=== PATIENT | male | born 1965 | race Caucasian/White ===

== ENCOUNTER 2023-10-17 11:46 | Observation (INO) | payer BC ==
[~2023-10-17] VITALS: Ht 180.3 cm; Wt 117.9 kg
[2023-10-17 11:50] VITALS: BP_SYST 178; PULSE 110; RESP 20; TEMP 98.7; O2SAT 99
[2023-10-17 13:36] LABS: BASOPHILS % (AUTO) 0.3 % (0.0-2.0); EOSINOPHILS % (AUTO) 0.1 % (0.0-4.0); HEMATOCRIT 39.7 % (36-54); HEMOGLOBIN 13.7 g/dL (14.0-18.0); LYMPHOCYTES # (AUTO) 1.4 K/uL (1.0-5.5); LYMPHOCYTES % (AUTO) 16.6 % (20.5-51.5); MEAN CORPUSCULAR HEMOGLOBIN 29 pg (27-31); MEAN CORPUSCULAR HGB CONC 34 % (32-36); MEAN CORPUSCULAR VOLUME 84 fL (79.0-98.0); MONOCYTES # (AUTO) 0.4 K/uL (0.0-1.0); MONOCYTES % (AUTO) 4.5 % (1.7-9.3); NEUTROPHILS # (AUTO) 6.7 K/uL (1.8-7.7); NEUTROPHILS % (AUTO) 78.5 % (40.0-70.0); PLATELET COUNT (AUTO) 227 K/uL (130-430); RED BLOOD CELL COUNT(AUTO) 4.75 MIL/uL (4.2-6.2); RED CELL DISTRIBUTION WIDTH 14.1 % (9.0-15.0); WHITE BLOOD COUNT (AUTO) 8.5 K/uL (4.8-10.8)
[2023-10-17 13:53] LABS: ANION GAP 8 (5-15); CALCIUM 9.1 mg/dL (8.4-11.0); CARBON DIOXIDE 28 mmol/L (23-29); CHLORIDE 105 mmol/L (98-107); CREATININE 0.74 mg/dL (0.55-1.30); GFR AFRICAN AMERICAN 140 mL/min (>90); GLUCOSE 119 mg/dL (74-106); SODIUM SERUM 141 mmol/L (136-145); UREA NITROGEN, BLOOD 13 mg/dL (8-21)
[2023-10-17 13:57] LABS: INR 0.9 (0.80-1.20); PROTHROMBIN TIME 9.8 SECS (9.5-12.5)
[2023-10-17 13:58] LABS: GFR NON AFRICAN-AMERICAN 116 mL/min (>90)
[2023-10-17] MEDS ORDERED: iohexoL 350 mgI/mL, 100 ML INFUS..BTL IV ONE (13:58)
[2023-10-17 14:02] LABS: ALANINE AMINOTRANSFERASE 33 U/L (12-78); ASPARTATE AMINOTRANSFERASE 15 U/L (10-37); BILIRUBIN,DIRECT 0.1 mg/dL (0.0-0.3); TOTAL BILIRUBIN 0.4 mg/dL (0.0-1.0); TOTAL PROTEIN, SERUM 7.8 g/dL (6.4-8.3)
[2023-10-17] MEDS ORDERED: AMLO5TAB92 PO (15:51)
[2023-10-17] MEDS ORDERED: LOSA50TA28 PO (15:51)
[2023-10-17] MEDS ORDERED: ATOR40TA68 PO (15:51)
[2023-10-17] MEDS ORDERED: METF-381 PO (15:51)
[2023-10-17] MEDS ORDERED: SEMA0.258 SUBCUT (15:51)
[2023-10-17] MEDS: predniSONE 20 MG TABLET PO ONE (16:02)
[2023-10-17] MEDS: ACYCLOVIR 400 MG TABLET PO ONE (16:02)
[2023-10-17] MEDS: ASPIRIN 81 MG TABLET(ECOTRIN) PO ONE (16:02)
[2023-10-17] MEDS ORDERED: ACYCLOVIR 400 MG TABLET ONE (21:28)
[2023-10-17] MEDS: ACYCLOVIR 400 MG TABLET PO SCH (22:25)
[2023-10-18] MEDS ORDERED: ACYCLOVIR 400 MG TABLET ONE (06:20)
[2023-10-18] MEDS: ASPIRIN 81 MG TAB.CHEW PO SCH (10:07)
[2023-10-18] MEDS: predniSONE 20 MG TABLET PO SCH (10:07)
[2023-10-18 10:14] VITALS: BP_SYST 144; PULSE 103; RESP 18; TEMP 97.1
[2023-10-18 10:22] VITALS: O2SAT 98
[2023-10-18] MEDS ORDERED: PRED20TA PO (10:51)
[2023-10-18 11:27] VITALS: BP_SYST 145; PULSE 101; RESP 17; TEMP 97.2; O2SAT 97
[2023-10-18] MEDS ORDERED: GADOTERATE MEGLUMINE 7.5 MMOL/15 ML VIAL IV ONE (11:30)
[2023-10-18] MEDS ORDERED: LOSARTAN POTASSIUM 50 MG TABLET (COZAAR) PO ONE (11:30)
[2023-10-18] MEDS ORDERED: ATORVASTATIN 20 MG TABLET PO ONE (11:30)
[2023-10-18 15:23] VITALS: BP_SYST 145; PULSE 101; RESP 16; TEMP 97.2; O2SAT 97
[2023-10-19] MEDS ORDERED: LOSARTAN POTASSIUM 50 MG TABLET (COZAAR) PO SCH (09:00)
[2023-10-19] MEDS ORDERED: ATORVASTATIN 20 MG TABLET PO SCH (09:00)
== END 2023-10-18 16:00 | disposition home or self-care (01) ==
LOC: SED 11:46 → SMU 15:42
PROVIDERS: ADMIT Specialist; ATTEND Specialist
DX: G51.0 Bell's palsy (principal); I10 Essential (primary) hypertension; E78.5 Hyperlipidemia, unspecified; E66.01 Morbid (severe) obesity due to excess calories; Z79.899 Other long term (current) drug therapy
CPT/HCPCS: 80076; 80048; 83037; 83880; 85025; 85379; 85610; 85730; 84484; 36415; 93005; 71045; 70450; 70496; 70498; 76376; 99285; 70553; Q9967; J7512 ×2; G0378 ×2; A9575